=== PATIENT | male | born 1965 | race Caucasian/White ===

== ENCOUNTER 2018-08-19 05:36 | Day surgery (SDC) | payer BC, OTHER ==
[~2018-08-19] VITALS: Ht 182.9 cm; Wt 98.4 kg
[~2018-08-19 05:36] MED LIST: GINKGO60 MG PO; MULTI VITAMIN1 EACH PO; SUPER OMEGA-31000 MG PO
[2018-08-19 08:29] VITALS: BP 122/85
[2018-08-19 11:36] VITALS: BP 122/85
--- NOTE | 2018-08-20 06:39 | O ---
[facility] [place] [address] OPERATIVE REPORT Name: RONALD HILL Room #: 150-2 [facility]..#: [id number] Admission: 08/19/18 ������������������ Attend Phys: Kevin Williamson MD Discharge: ������������������ Date of : 65 Report #: [id number] THIS REPORT FOR: //name// CC: [facility] physician/PCP Kevin Williamson DATE OF SERVICE: 08/19/2018 SERVICE: Orthopedics. FACILITY: [place]. SURGEON: Kevin Williamson M.D. ASSISTANT PROFESSOR OF CHEMISTRY: Katelynn Guevara N.P. PREOPERATIVE DIAGNOSES: 1. Right knee pain. 2. Right knee medial meniscus tear. POSTOPERATIVE DIAGNOSES: 1. Right knee pain. 2. Medial meniscus tear. 3. Right knee chondromalacia. PROCEDURE: Right knee arthroscopy, partial meniscectomy, and chondroplasty. COMPLICATIONS: None. DRAINS: None. SPECIMENS: None. ANESTHESIA TYPE: General. FINDINGS: 1. Complex tear of the medial meniscus, treated with partial meniscectomy. 2. Healthy appearing lateral compartment. 3. Chondromalacia of the trochlea with healthy appearing patella. There was chondromalacia of the medial femoral condyle. HISTORY: The patient is a 53-year-old gentleman with a history of right knee pain secondary to a symptomatic medial meniscus tear for which he failed conservative measures including rest, activity modifications, physical therapy modalities and medications. He had MRI, which showed the meniscal tear with unstable flap component. Risks, benefits, alternatives, and indication of [facility] [address] [place] [address] OPERATIVE REPORT Name: RONALD HILL Room #: 150-2 [facility] M.R.#: [id number] Admission: 08/19/18 ������������������ Attend Phys: Kevin Williamson MD Discharge: ������������������ Date of : 65 Report #: [id number] surgery discussed with him in detail. Risks include but not limited to pain, bleeding, infection, injury to nerves or blood vessels, persistent pain despite surgical intervention, progression of preexisting chondral injury, stiffness, need for further surgery as well as complications such as stroke, heart attack, pulmonary complications, thromboembolic disease and . Despite these risks, he wished to proceed. PROCEDURE IN DETAIL: After right lower extremity was correctly identified in the preoperative holding area as the operative extremity, the patient was taken to the operating room where general anesthesia was induced without complication. He was padded appropriately. Prophylactic antibiotics were administered at appropriate time. Right lower extremity was prepped and draped in standard sterile fashion. Time-out procedure was performed. Esmarch was used. Tourniquet inflated to 250 mmHg. A standard anterolateral viewing portal was established by anterior medial working portal. Diagnostic arthroscopy revealed the above findings. Shaver was used to perform a limited chondroplasty and then attention turned towards the medial compartment meniscus tear. This was unstable to probing and was resected to stable flap. There was a tear of the posterior horn extending to the root tears of additional flap tear that was folded back upon itself on to the femoral side of the meniscus at the root, the root otherwise was intact. Approximately 30% of meniscal volume was resected with the biter and shaver to a stable perimeter. The tibial plateau articular cartilage was normal in this area. The anterior and posterior cruciate ligaments were normal in appearance. He was placed in [id number] position and the lateral compartment was evaluated. There was no significant pathology noted here. Note that there was some chondral debris floating within the knee that was lodged as well as the residual meniscal fragments. After partial meniscectomy, arthroscopic effusion was drained, instruments were removed. Portal sites were closed, sterile dressing applied followed by compression stocking. The patient was awakened from anesthesia and taken to recovery room in stable condition. No complications. All counts were recorded as correct. ��������������������������������������������� <ELECTRONICALLY SIGNED> ���������������������������������������� By: Kevin Williamson MD ��������������������������������������������� 08/20/18 [id number] Kevin Williamson MD /nt
== END 2018-08-19 12:19 | disposition home or self-care (01) ==
LOC: TBA 05:36 → OR 05:36
DX: S83.231A Complex tear of medial meniscus, current injury, right knee, initial encounter (principal); M94.261 Chondromalacia, right knee; Z98.890 Other specified postprocedural states; Z79.899 Other long term (current) drug therapy; X58.XXXA Exposure to other specified factors, initial encounter; Y93.89 Activity, other specified; Y92.89 Other specified places as the place of occurrence of the external cause; Y99.8 Other external cause status
CPT/HCPCS: 50010; 50101; 50405; 51038; 54170; 56527; 57103; 57180; 62110; 62900; 70005